=== PATIENT | female | born 1980 | race African-American/Black ===

== ENCOUNTER 2025-02-14 21:40 | Emergency (ER) | payer OTHER ==
[~2025-02-14] VITALS: Ht 154.9 cm; Wt 93.0 kg
[2025-02-14 21:44] VITALS: O2SAT 98
[2025-02-14 21:46] VITALS: TEMP 36.7; O2SAT 99
[2025-02-15 00:03] VITALS: PULSE 104
[2025-02-15] MEDS: IBUPROFEN 600MG TABLET PO ONE (00:03)
[2025-02-15 00:04] VITALS: BP 168/111; RESP 18
[2025-02-15] MEDS: LIDOCAINE 5% PATCH TOP STA (00:04)
[2025-02-15] MEDS ORDERED: IBUP-1455 MT (01:05)
[2025-02-15] MEDS ORDERED: CYCL10TA21 MT (01:05)
[2025-02-15] MEDS ORDERED: LIDO700A30 TP (01:05)
== END 2025-02-15 02:45 | disposition home or self-care (01) ==
LOC: ER 21:40
DX: M25.562 Pain in left knee (principal); M79.622 Pain in left upper arm; M54.2 Cervicalgia; V49.40XA Driver injured in collision with unspecified motor vehicles in traffic accident, initial encounter; Y93.89 Activity, other specified; Y92.410 Unspecified street and highway as the place of occurrence of the external cause; Y99.8 Other external cause status
CPT/HCPCS: 29505; 73562; 99283